=== PATIENT | female | born 1995 | race Caucasian/White ===

== ENCOUNTER 2017-01-19 17:25 | Emergency (ER) | payer OTHER ==
[2017-01-19] MEDS ORDERED: NO MEDICATIONS (17:35)
== END 2017-01-19 18:34 | disposition left against medical advice (07) ==
LOC: SED 17:25
DX: T40.1X1A Poisoning by heroin, accidental (unintentional), initial encounter (principal); F17.210 Nicotine dependence, cigarettes, uncomplicated
CPT/HCPCS: 99284